=== PATIENT | female | born 1965 | race Caucasian/White ===

== ENCOUNTER 2024-12-20 01:02 | Observation (INO) | payer BC ==
[2024-12-20 01:57] LABS: BASOPHILS ABSOLUTE AUTO 0.02 10^3/uL (0.00-0.50); BASOPHILS PERCENT AUTO 0.2 % (0-1); EOSINOPHILS ABSOLUTE AUTO 0.03 10^3/uL (0.00-1.50); EOSINOPHILS PERCENT AUTO 0.4 % (0-6); HEMATOCRIT 47.4 % (37.0-47.0); HEMOGLOBIN 16.4 g/dL (12.0-16.0); IMMATURE GRAN ABSOLUTE AUTO 0.01 10^3/uL (0.00-0.49); IMMATURE GRAN PERCENT AUTO 0.1 % (0.0-4.9); LYMPHOCYTES ABSOLUTE AUTO 1.47 10^3/uL (0.60-5.00); LYMPHOCYTES PERCENT AUTO 18.3 % (24-44); MEAN CORPUSCULAR HEMOGLOBIN 31.2 pg (27.0-32.0); MEAN CORPUSCULAR HGB CONC 34.6 g/dL (32.0-36.0); MEAN CORPUSCULAR VOLUME 90.1 fL (83.0-97.0); MONOCYTES ABSOLUTE AUTO 0.43 10^3/uL (0.00-1.50); MONOCYTES PERCENT AUTO 5.4 % (0-10); NEUTROPHILS ABSOLUTE AUTO 6.07 x10^3/uL (1.80-8.00); NEUTROPHILS PERCENT AUTO 75.6 % (41-71); PLATELET COUNT,PLT 215 10^3/uL (150-400); RED BLOOD CELL COUNT 5.26 x10^6/uL (4.00-5.50)
[2024-12-20 02:15] LABS: BILIRUBIN TOTAL 0.4 mg/dL (0.0-1.0); CREATININE 0.9 mg/dL (0.6-1.0); EST CRCL DRUG DOSING (CG) 58.84 mL/min; MAGNESIUM 2.1 mg/dL (1.8-2.4); POTASSIUM,K 3.6 mEq/L (3.5-5.0); PROTEIN TOTAL,TP 7.8 g/dL (6.4-8.2)
[2024-12-20] MEDS ORDERED: hydrOXYzine HCl 25 MG Tab PO PRN (02:55)
[2024-12-20] MEDS ORDERED: Ondansetron 4 MG/2 ML SDV IV PRN (02:55)
[2024-12-20] MEDS ORDERED: Docusate Sodium 100 MG Cap PO PRN (02:55)
[2024-12-20] MEDS ORDERED: Ondansetron 4 MG Tab.DIS PO PRN (02:55)
[2024-12-20] MEDS ORDERED: Labetalol 20 MG/4 ML Syringe IVPUSH PRN (02:55)
[2024-12-20] MEDS ORDERED: Sodium Chloride 0.9% 10 ML Syringe FLUSH PRN (02:55)
[2024-12-20] MEDS ORDERED: Polyethylene Glycol 3350 Powder 17 GM Packet PO PRN (02:55)
[2024-12-20] MEDS ORDERED: Acetaminophen 325 MG Tab PO PRN (02:55)
[2024-12-20] MEDS: Losartan 25 MG Tab PO SCH ×2 (03:08→03:17)
[2024-12-20] MEDS ORDERED: THEANINE PO SCH (08:00)
[2024-12-20 08:06] LABS: BASOPHILS ABSOLUTE AUTO 0.02 10^3/uL (0.00-0.50); BASOPHILS PERCENT AUTO 0.3 % (0-1); EOSINOPHILS ABSOLUTE AUTO 0.07 10^3/uL (0.00-1.50); EOSINOPHILS PERCENT AUTO 1.1 % (0-6); HEMATOCRIT 43.5 % (37.0-47.0); LYMPHOCYTES ABSOLUTE AUTO 1.65 10^3/uL (0.60-5.00); LYMPHOCYTES PERCENT AUTO 26.9 % (24-44); MEAN CORPUSCULAR HEMOGLOBIN 31.1 pg (27.0-32.0); MEAN CORPUSCULAR HGB CONC 34.5 g/dL (32.0-36.0); MEAN CORPUSCULAR VOLUME 90.1 fL (83.0-97.0); MONOCYTES ABSOLUTE AUTO 0.46 10^3/uL (0.00-1.50); MONOCYTES PERCENT AUTO 7.5 % (0-10); NEUTROPHILS ABSOLUTE AUTO 3.94 x10^3/uL (1.80-8.00); NEUTROPHILS PERCENT AUTO 64.2 % (41-71); PLATELET COUNT,PLT 224 10^3/uL (150-400); RED BLOOD CELL COUNT 4.83 x10^6/uL (4.00-5.50); WHITE BLOOD CELL COUNT,WBC 6.1 10^3/uL (4.0-11.0)
[2024-12-20 08:12] LABS: APPEARANCE,URINE CLEAR (CLEAR); BILIRUBIN,URINE NEGATIVE (NEGATIVE); COLOR,URINE YELLOW (YELLOW); GLUCOSE,URINE NEGATIVE (NEGATIVE); KETONES,URINE NEGATIVE (NEGATIVE); LEUKOCYTE ESTERASE,URINE NEGATIVE (NEGATIVE); NITRITE,URINE NEGATIVE (NEGATIVE); OCCULT BLOOD,URINE NEGATIVE (NEGATIVE); PROTEIN,URINE NEGATIVE (NEGATIVE); UROBILINOGEN,URINE 0.2 EU/dL (0.2-1.0)
[2024-12-20 08:18] LABS: BACTERIA,URINE NOT SEEN /HPF (NOT SEEN); RBC,URINE 0-5 /HPF (0-5); SQUAMOUS EPITHELIAL CELLS,UR FEW /HPF (NOT SEEN)
[2024-12-20 08:29] LABS: CALCIUM 8.8 mg/dL (8.4-10.1); CREATININE 0.7 mg/dL (0.6-1.0); EST CRCL DRUG DOSING (CG) 75.65 mL/min; MAGNESIUM 2.1 mg/dL (1.8-2.4); POTASSIUM,K 3.7 mEq/L (3.5-5.0)
[2024-12-20] MEDS: Iopamidol 755 Mg/ML 100 ML Bottle IVPUSH ONE (14:17)
[2024-12-20 14:46] VITALS: BP 138/82; PULSE 80
== END 2024-12-20 15:52 | disposition home or self-care (01) ==
LOC: CC.ED 01:02 → UNDOADMOB 02:23 → CC.MS 02:23
PROVIDERS: ADMIT Nurse Practitioner; ATTEND Nurse Practitioner
DX: I16.0 Hypertensive urgency (principal); F41.9 Anxiety disorder, unspecified; Z79.899 Other long term (current) drug therapy
CPT/HCPCS: 36415; 70496; 80048; 80053; 81001; 83735; 84484; 85025; 99285; A9270-GY; Q9967

== ENCOUNTER 2025-04-27 07:33 | Day surgery (SDC) | payer BC ==
[2025-04-27] MEDS: Lactated Ringers 1,000 ML IV SCH (08:10)
[2025-04-27] MEDS ORDERED: Ketamine 200 MG/20 ML MDV ONE (08:20)
[2025-04-27] MEDS ORDERED: Midazolam 1 MG/ML 2 ML SDV ONE (08:20)
[2025-04-27] MEDS ORDERED: Flumazenil 0.1 MG/ML 5 ML MDV ONE (08:20)
[2025-04-27] MEDS ORDERED: fentaNYL 50 MCG/ML SDV ONE (08:20)
[2025-04-27] MEDS ORDERED: Propofol 200 MG/20 ML SDV ONE ×2 (08:20)
[2025-04-27 09:32] VITALS: BP 92/60; PULSE 62
== END 2025-04-27 09:53 ==
LOC: CC.SDS 07:33
PROVIDERS: ATTEND Family Medicine
DX: Z12.11 Encounter for screening for malignant neoplasm of colon (principal); K63.5 Polyp of colon; K57.30 Diverticulosis of large intestine without perforation or abscess without bleeding; Z80.0 Family history of malignant neoplasm of digestive organs; I10 Essential (primary) hypertension; E78.5 Hyperlipidemia, unspecified; I67.1 Cerebral aneurysm, nonruptured; F41.9 Anxiety disorder, unspecified; Z79.899 Other long term (current) drug therapy
CPT/HCPCS: 00811; J2250; J2704; J3010; J3490; J7120